=== PATIENT | male | born 1955 | race Caucasian/White ===

== ENCOUNTER 2017-01-02 10:03 | Observation (INO) | payer OTHER ==
[2017-01-02] MEDS ORDERED: NS 0.9% 1000 ML* 1,000 ML IV SCH (10:15)
[2017-01-02 10:34] LABS: Hematocrit 40 % (42-52); Hemoglobin 13.4 g/dl (14.0-18.0); Mean Corpuscular HGB Conc 33 g/dl (31-36); Mean Corpuscular Hemoglobin 29 pg (27-31); Mean Corpuscular Volume 89 fL (80-94); Mean Platelet Volume 8 um3 (7.4-10.4); Red Blood Count 4.54 10^6/ul (4.0-5.4); Red Cell Distribution Width 13 % (10.5-15); White Blood Count 9.4 10^3/ul (3.5-10.8)
[2017-01-02] MEDS ORDERED: Aspirin Low Dose CHEW TAB* 81 MG PO ONE (10:43)
--- NOTE | 2017-01-02 10:47 | RAD ---
INDICATION: Palpitations COMPARISON: March 10, 2015 TECHNIQUE: An AP portable view obtained at 1014 hours is submitted. FINDINGS: Bones/Soft Tissues: There are no acute bony findings. There is sternotomy Cardiomediastinal: The cardiomediastinal silhouette is normal. Lungs: There are no infiltrates. Pleura: There are no pleural effusions. Other: None IMPRESSION: NO ACTIVE DISEASE.
[2017-01-02 10:55] LABS: Albumin 4.3 g/dL (3.2-5.2); BUN/Creatinine Ratio 18.2 (8-20); C Reactive Protein 3.97 mg/L (< 5.00); EGFR African American 113.2 (>60); Globulin 2.9 g/dL (2-4); Magnesium 1.8 mg/dL (1.9-2.7); Potassium 3.9 mmol/L (3.5-5.0); Total Bilirubin 0.6 mg/dL (0.2-1.0); Total Protein 7.2 g/dL (6.4-8.9)
[2017-01-02 11:06] LABS: Troponin I 0.04 ng/mL (<0.04)
[2017-01-02 11:16] LABS: TSH (Thyroid Stimulating Horm) 1.05 mcIU/mL (0.34-5.60)
--- NOTE | 2017-01-02 11:53 | ED ---
maurice Gloria Timothy, scribed for Leland Curiel MD on 01/02/17 at 1028 . Palpitations / Dysrhythmia - HPI Summary HPI Summary: Igor Benito is a 61 yo male presenting to [facility] with SOB, palpitations, disorientation, near syncope, and diaphoresis since 0800 today, lasting until 1000. He had been at work for 3 hours prior to his Sx. He states that resting has helped to alleviate his Sx. He takes ASA daily, and took some this morning. He denies any CP. His MHx includes heart murmur, migraine, back problems. - History of Current Complaint Time Seen by Provider: 01/02/17 10:36 Hx Obtained From: Patient Onset/Duration: Sudden Onset, Lasting Hours, Still Present Timing: Constant Severity Initially: Moderate Severity Currently: Moderate Character: Fast Alleviating: Rest Associated Signs & Symptoms: Syncope - near, Shortness of Breath, Diaphoresis, Nausea - Allergy/Home Medications Allergies/Adverse Reactions: Allergies Allergy/AdvReac Type Severity Reaction Status Date / Time No Known Allergies Allergy Verified 05/27/14 07:50 PMH/Surg Hx/FS Hx/Imm Hx Endocrine/Hematology History: Denies: Hx Diabetes, Hx Thyroid Disease Cardiovascular History: Reports: Other Cardiovascular Problems/Disorders - PT.STATES HEART MURMUR & IRREGULAR HEART BEAT Denies: Hx Congestive Heart Failure, Hx Hypertension, Hx Pacemaker/ICD Respiratory History: Denies: Hx Asthma, Hx Chronic Obstructive Pulmonary Disease (COPD), Other Respiratory Problems/Disorders GI History: Denies: Hx Ulcer, Other GI Disorders History: Denies: Hx Renal Disease Musculoskeletal History: Reports: Hx Back Problems, Other Musculoskeletal History - (right) carpal tunnel s/p surgery Sensory History: Reports: Hx Contacts or Glasses Denies: Hx Hearing Aid Opthamlomology History: Reports: Hx Contacts or Glasses Neurological History: Reports: Hx Headaches, Hx Migraine Denies: Other Neuro Impairments/Disorders Psychiatric History: Denies: Hx Panic Disorder - Surgical History Surgery Procedure, Year, [place] [facility] [place] Hx Anesthesia Reactions: No Infectious Disease History: Denies: Hx Clostridium Difficile, Hx Hepatitis, Hx Human Immunodeficiency Virus (HIV), Hx of Known/Suspected MRSA, Hx Shingles, Hx Tuberculosis, Traveled Outside the [place] in Last 30 Days - Family History Known Family History: Negative: Cardiac Disease, Hypertension, Diabetes - Social History Alcohol Use: None Substance Use Type: Reports: None Smoking Status (MU): Light Every Day Tobacco Smoker Type: Cigarettes Amount Used/How Often: 1/2 ppd Have You Smoked in the Last Year: Yes Review of Systems Positive: Skin Diaphoresis Eyes: Negative ENT: Negative Positive: Palpitations Positive: Shortness Of Breath Positive: Nausea Genitourinary: Negative Musculoskeletal: Negative Skin: Negative Positive: Syncope - near Psychological: Normal All Other Systems Reviewed And Are Negative: Yes Physical Exam Triage Information Reviewed: Yes Vital Signs On Initial Exam: Initial Vitals Temp Pulse Resp BP Pulse Ox 98.4 F 88 17 173/83 98 01/02/17 10:03 01/02/17 10:03 01/02/17 10:03 01/02/17 10:03 01/02/17 10:03 Vital Signs Reviewed: Yes Appearance: Positive: No Pain Distress, Well-Nourished, Ill-Appearing - mild Skin: Positive: Warm, Skin Color Reflects Adequate Perfusion, Dry Head/Face: Positive: Normal Head/Face Inspection Eyes: Positive: EOMI, DEVIN ENT: Positive: Normal ENT inspection, Hearing grossly normal. Negative: Muffled /hoarse voice Neck: Positive: Supple, Nontender Respiratory/Lung Sounds: Positive: Clear to Auscultation, Breath Sounds Present Cardiovascular: Positive: RRR - occasional PVC's Musculoskeletal: Positive: Strength/ROM Intact Neurological: Positive: Sensory/Motor Intact, Alert, Oriented to Person Place, Time Psychiatric: Positive: Affect/Mood Appropriate Diagnostics - Vital Signs Vital Signs Temp Pulse Resp BP Pulse Ox 01/02/17 10:03 98.4 F 88 17 173/83 98 - Laboratory Lab Results: Lab Results 01/02/17 01/02/17 01/02/17 Range/Units 10:20 10:20 10:20 WBC 9.4 (3.5-10.8) 10^3/ul RBC 4.54 (4.0-5.4) 10^6/ul Hgb 13.4 L (14.0-18.0) g/dl Hct 40 L (42-52) % MCV 89 (80-94) fL MCH 29 (27-31) pg MCHC 33 (31-36) g/dl RDW 13 (10.5-15) % Plt Count 189 (150-450) 10^3/ul MPV 8 (7.4-10.4) um3 Neut % (Auto) 77.3 (38-83) % Lymph % (Auto) 15.1 L (25-47) % Cannon % (Auto) 6.1 (1-9) % Eos % (Auto) 0.9 (0-6) % Baso % (Auto) 0.6 (0-2) % Absolute Neuts (auto) 7.2 (1.5-7.7) 10^3/ul Absolute Lymphs (auto) 1.4 (1.0-4.8) 10^3/ul Absolute Monos (auto) 0.6 (0-0.8) 10^3/ul Absolute Eos (auto) 0.1 (0-0.6) 10^3/ul Absolute Basos (auto) 0.1 (0-0.2) 10^3/ul Absolute Nucleated RBC 0.03 10^3/ul Nucleated RBC % 0.3 INR (Anticoag Therapy) 0.95 (0.89-1.11) APTT 29.0 (26.0-36.3) seconds D-Dimer, Quantitative < 200 (Less Than 230) ng/mL Sodium 135 (133-145) mmol/L Potassium 3.9 (3.5-5.0) mmol/L Chloride 102 (101-111) mmol/L Carbon Dioxide 24 (22-32) mmol/L Anion Gap 9 (2-11) mmol/L BUN 16 (6-24) mg/dL Creatinine 0.88 (0.67-1.17) mg/dL Est GFR ( Amer) 113.2 (>60) Est GFR (Non-Af Amer) 88.0 (>60) BUN/Creatinine Ratio 18.2 (8-20) Glucose 163 H (70-100) mg/dL Lactic Acid (0.5-2.0) mmol/L Calcium 9.0 (8.6-10.3) mg/dL Magnesium 1.8 L (1.9-2.7) mg/dL Total Bilirubin 0.60 (0.2-1.0) mg/dL AST 22 (13-39) U/L ALT 37 (7-52) U/L Alkaline Phosphatase 72 (34-104) U/L Total Creatine Kinase 126 (10-223) U/L CK-MB (CK-2) 3.0 (0.6-6.3) ng/mL Troponin I 0.04 H* (<0.04) ng/mL C-Reactive Protein 3.97 (< 5.00) mg/L B-Natriuretic Peptide ( - 100) pg/mL Total Protein 7.2 (6.4-8.9) g/dL Albumin 4.3 (3.2-5.2) g/dL Globulin 2.9 (2-4) g/dL Albumin/Globulin Ratio 1.5 (1-3) Lipase 29 (11.0-82.0) U/L TSH 1.05 (0.34-5.60) mcIU/mL 01/02/17 01/02/17 Range/Units 10:20 10:20 WBC (3.5-10.8) 10^3/ul RBC (4.0-5.4) 10^6/ul Hgb (14.0-18.0) g/dl Hct (42-52) % MCV (80-94) fL MCH (27-31) pg MCHC (31-36) g/dl RDW (10.5-15) % Plt Count (150-450) 10^3/ul MPV (7.4-10.4) um3 Neut % (Auto) (38-83) % Lymph % (Auto) (25-47) % Cannon % (Auto) (1-9) % Eos % (Auto) (0-6) % Baso % (Auto) (0-2) % Absolute Neuts (auto) (1.5-7.7) 10^3/ul Absolute Lymphs (auto) (1.0-4.8) 10^3/ul Absolute Monos (auto) (0-0.8) 10^3/ul Absolute Eos (auto) (0-0.6) 10^3/ul Absolute Basos (auto) (0-0.2) 10^3/ul Absolute Nucleated RBC 10^3/ul Nucleated RBC % INR (Anticoag Therapy) (0.89-1.11) APTT (26.0-36.3) seconds D-Dimer, Quantitative (Less Than 230) ng/mL Sodium (133-145) mmol/L Potassium (3.5-5.0) mmol/L Chloride (101-111) mmol/L Carbon Dioxide (22-32) mmol/L Anion Gap (2-11) mmol/L BUN (6-24) mg/dL Creatinine (0.67-1.17) mg/dL Est GFR ( Amer) (>60) Est GFR (Non-Af Amer) (>60) BUN/Creatinine Ratio (8-20) Glucose (70-100) mg/dL Lactic Acid 2.4 H* (0.5-2.0) mmol/L Calcium (8.6-10.3) mg/dL Magnesium (1.9-2.7) mg/dL Total Bilirubin (0.2-1.0) mg/dL AST (13-39) U/L ALT (7-52) U/L Alkaline Phosphatase (34-104) U/L Total Creatine Kinase (10-223) U/L CK-MB (CK-2) (0.6-6.3) ng/mL Troponin I (<0.04) ng/mL C-Reactive Protein (< 5.00) mg/L B-Natriuretic Peptide 58 ( - 100) pg/mL Total Protein (6.4-8.9) g/dL Albumin (3.2-5.2) g/dL Globulin (2-4) g/dL Albumin/Globulin Ratio (1-3) Lipase (11.0-82.0) U/L TSH (0.34-5.60) mcIU/mL Result Diagrams: 01/02/17 10:20 01/02/17 10:20 Lab Statement: Any lab studies that have been ordered have been reviewed, and results considered in the medical decision making process. - Radiology CXR Xray Interpretation: No Acute Changes - IMPRESSION: NO ACTIVE DISEASE. Radiology Interpretation Completed By: Radiologist - EKG 1008 Cardiac Rate: NL - [address] Segment: Normal EKG Interpretation: NSR @ 87 BPM, positive PVC's, normal ST. Re-Evaluation - Re-Evaluation Second Eval Re-Evaluation Time: 11:37 Change: Unchanged Comment: Pt is informed of lab and imaging studies, and is agreeable to current course of Tx. Course/Dx - Course Course Of Treatment: NO CRITICAL CARE TIME Assessment/Plan: Igor Benito is a 61 yo male presenting to [facility] with SOB, near syncope, palpitations, disorientation, diaphoresis from 0800 to 1000 today. In the ED he received ASA and IV fluids. His EKG suggests PVC's. His CXR suggests no acute disease. Note lactic acid of 2.4 and troponin of 0.04. After clinical examination and review of his imaging and lab studies, as well as discussion with Dr. Meredith, he [place] be [place] [facility] [place] and treatment. - Diagnoses Provider Diagnoses: Near syncope, Palpitations, Elevated troponin - Physician Notifications Discussed Care Of Patient With: 1129 - Dr. Meredith (hospitalist) - discussed Pt condition, notably Hx and troponin and lactic acid levels. Discussed most recent EKG. She accepts Pt for admission. Instructed by Provider To: Admit As Inpatient Discharge - Discharge Plan Condition: Stable Disposition: ADMITTED TO [facility] Referrals: No Primary Care Phys,NOPCP [Primary Care Provider] - The documentation as recorded by the maurice pena Timothy accurately reflects the service I personally performed and the decisions made by me, Leland Curiel MD.
[2017-01-02] MEDS ORDERED: Acetaminophen TAB* 325 MG PO PRN (12:28)
[2017-01-02] MEDS ORDERED: Temazepam CAP* 15 MG PO PRN (12:28)
[2017-01-02] MEDS: Heparin VIAL(*) 5000 UNITS/ML VIAL (FIVE THOUSAND) SUBCUT SCH ×2 (15:57→21:30)
--- NOTE | 2017-01-02 17:31 | HP ---
HISTORY AND PHYSICAL: DATE OF ADMISSION: 01/02/17 PRIMARY CARE PROVIDER: Aaron Lazar MD CHIEF COMPLAINT: Shortness of breath, nausea, and near syncope. HISTORY OF PRESENT ILLNESS: Igor Benito is a 61-year-old male with history of status post aortic valve replacement with a bovine valve in February 2015, who presented to the hospital today complaining of symptoms of basically near syncope. 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 Today, when he was standing up, he started feeling lightheaded, flushed, and short of breath. He also stated that his knees were "weak." He felt like he needed to sit down. He stated that he walked over to the bathroom and he nearly passed out. He denies chest pain per se. He did not have palpitations. He did feel shortness of breath and he did have an episode of nausea, but no vomiting. When he presented to the emergency department, his symptoms basically resolved. The patient himself stated that he feels like maybe he had an anxiety attack, and he stated that he had similar symptoms in the past, but of lesser intensity. The patient is going to be placed on observation with a diagnosis of near syncope. He most likely will undergo a cardiac stress test in the morning. PAST MEDICAL HISTORY: 1. Status post aortic valve replacement with bovine valve in February 2015. Prior to that, the patient cardiac catheterization in 2014, which was grossly unremarkable and negative for coronary artery disease. 2. History of obesity, current BMI is 39. 3. History of smoking, the patient quit smoking 2 years ago. 4. History of dyslipidemia. 5. History of obstructive sleep apnea. Currently under investigation, not treated. The patient's most recent echocardiogram after aortic valve replacement in April 2015 showed EF of 45%. HOME MEDICATIONS: Include: 1. Atorvastatin 20 mg daily. 2. Metoprolol tartrate 25 mg b.i.d. 3. Aspirin 81 mg daily. 4. Multivitamin 1 tablet daily. ALLERGIES: No known drug allergies. FAMILY HISTORY: The patient's mother of "old age" in her 70s. The patient 's father's history is unknown. His siblings are healthy. SOCIAL HISTORY: The patient has a history of smoking 1 pack per day and he quit 2 years ago. He has got a history of over 40 pack years. He drinks alcohol rarely. He denies any drug use. He is single and lives with his girlfriend, Jessica. Jessica would be his surrogate as indicated by the patient. REVIEW OF SYSTEMS: Please see history of present illness. In addition to the above mentioned, the patient stated that his exercise tolerance has been fair. He has had problems with osteoarthritis in bilateral knees, but he stated that he has no problems walking on a treadmill. He denies any chest pain. He stated that he had been anxious with problems with his neighbors and not really sleeping well due to that. He ate his breakfast before the occurrence of the episode described as above. All the remaining 14 systems were reviewed with the patient and were otherwise negative. PHYSICAL EXAMINATION GENERAL: The patient is a 61-year-old obese male who is in no acute distress. Alert, awake, and oriented x2. VITAL SIGNS: Blood pressure of 149/80, heart rate of 81 and regular, respiratory rate 18, oxygen saturation 98% on 2 L of oxygen nasal cannula, temperature 97.8. HEENT: Head atraumatic, normocephalic. Eyes: Pupils are equal, reactive to light and accommodation. Oropharynx: Clear. Mucosa moist. NECK: Supple. No JVD, no bruit bilaterally. RESPIRATORY: Clear to auscultation bilaterally. CARDIOVASCULAR: Regular rate and rhythm with a 2/6 systolic ejection murmur noted on auscultation of left upper sternal border. ABDOMEN: Soft, nontender, bowel sounds present in all 4 quadrants, protuberant. EXTREMITIES: There is trace lateral ankle edema. +2 pulses bilaterally. No clubbing or cyanosis. NEUROLOGIC: Speech clear. Cranial nerves II through XII grossly intact. Motor strength is 5/5 bilaterally. SKIN: On evaluation of the skin, no ecchymotic areas or rashes noted. PSYCHIATRIC EVALUATION: Oriented x3 with no evidence of anxiety or depression. DIAGNOSTIC STUDIES/LABORATORY DATA: Shows white blood cell count of 9.4, hemoglobin of 13.4, hematocrit of 40, and platelets of 189. Sodium was 135, potassium 3.9, chloride 102, carbon dioxide 24, BUN 16, creatinine 0.88. Liver function tests were unremarkable. Glucose level was 163. Troponin was 0.04. C-reactive protein was 3.9. TSH was 1.05. Brain natriuretic peptide was 58. Lactic acid of 2.4. The patient's portable chest x-ray, impression. "No active disease." The patient's EKG showed normal sinus rhythm with a heart rate of 87 beats per minute with frequent PVCs. No acute ST changes were noted. ASSESSMENT AND PLAN: A 61-year-old male with history of possible obstructive sleep apnea, obesity, status post aortic valve replacement, who presents with symptoms of near syncope, shortness of breath, feeling nauseated. 1. At this point, the patient most likely had near syncope experience. At this point, his lactic acid is mildly elevated. He is going to receive gentle intravenous hydration. He is going to be observed from telemetry monitored bed. We will follow up his troponins. If troponins continue to be negative, he is going to undergo a cardiac stress test. He has not had a cardiac stress test since his cardiac catheterization in 2014. An aspirin is going to be continued. 2. In regards to hypertension, beta-ronnie is going to be continued. 3. For dyslipidemia, his atorvastatin is going to be continued. 4. For DVT prophylaxis, the patient is going to be placed on heparin subcutaneously for DVT prophylaxis. 5. The patient's code status is full and his surrogate is his girlfriend, Jessica. TIME SPENT: Approximately 55 minutes was spent on admission of this patient, more than half that time was spent in [id number] with the patient during the interview and physical exam. CC: John Muhammad MD; Aaron Lazar MD* [id number]/[facility] #: [id number] MTDD
[2017-01-02] MEDS ORDERED: Atorvastatin* 20 MG TAB PO SCH (21:00)
[2017-01-02] MEDS: Metoprolol Tartrate TAB* 25 MG PO SCH (21:30)
[2017-01-03] MEDS: Heparin VIAL(*) 5000 UNITS/ML VIAL (FIVE THOUSAND) SUBCUT SCH ×2 (06:06→13:36)
[2017-01-03] MEDS ORDERED: Aspirin TAB* 325 MG PO SCH (09:00)
--- NOTE | 2017-01-03 12:37 | RAD ---
HISTORY: Near syncope, obesity, elevated cholesterol COMPARISONS: None TECHNIQUE: A 1 day stress/rest myocardial perfusion study was performed, with exercise stress. The exercise portion was performed using the Aaron protocol, for a total METs of 7. The stress portion was monitored by Dr. Gomez. Gated SPECT imaging was performed, with CT-based attenuation correction DOSE: Stress: Technetium 99m tetrofosmin, 25.69 millicuries, injected at 11:33 AM on January 03, 2017 Rest: Technetium 99m tetrofosmin, 10.4 millicuries, injected at 8:29 AM on January 03, 2017 Pharmacologic agent: None FINDINGS: CARDIAC MONITORING: No EKG changes of ischemia with stress EF: 51 % TID: 1.03 MOTION: There is septal hypokinesia PERFUSION: There are questionable, small perfusion defects towards the apex and anterior wall. There are no significant fixed or reversible perfusion defects. OTHER: None IMPRESSION: NO SIGNIFICANT FIXED OR REVERSIBLE PERFUSION DEFECTS ASSESSMENT: LOW RISK. Based on imaging criteria from ACC/AHA 2002. Guideline Update for the Management of Patient's with Chronic Stable Angina, table 23. Noninvasive Risk Stratification.
[2017-01-03 12:44] VITALS: BP 145/98
[2017-01-03] MEDS: Metoprolol Tartrate TAB* 25 MG PO SCH (12:47)
--- NOTE | 2017-01-04 01:07 | DS ---
DISCHARGE SUMMARY: DATE OF ADMISSION: 01/02/17 DATE OF DISCHARGE: 01/03/17 PRIMARY CARE PROVIDER: Dr. Aaron Lazar. DISCHARGE DIAGNOSES: Shortness of breath, nausea, and near syncope, most likely due to mild dehydration and stress related. The patient had low probability cardiac stress test obtained on 01/03/17. SECONDARY DIAGNOSES: 1. Status post aortic valve replacement with bovine valve in February of 2015. 2. History of obesity. 3. History of dyslipidemia. 4. Obstructive sleep apnea, currently under investigation. MEDICATIONS AT DISCHARGE: Unchanged from admission include: 1. Atorvastatin 20 mg daily. 2. Metoprolol tartrate 25 mg b.i.d. 3. Aspirin 81 mg daily. 4. Multivitamin 1 tablet daily. LABORATORY DATA AND STUDIES PERFORMED DURING THE HOSPITAL STAY: Included troponins continued to be 0.03 throughout the patient's hospital stay and the initial troponin was 0.04. Cardiac stress test obtained on 01/03/17, impression: "No significant fixed or reversible perfusion defects." Please also note that in perfusion part of the test it was noted that "there are questionable small perfusion defects towards the apex and anterior wall. There are no significant fixed or reversible perfusion defects." HOSPITALIZATION COURSE: Igor Benito is a 61-year-old male, who was standing while working and he felt dizzy and flushed and short of breath. He felt as if he was going to pass out and he came into the ER for evaluation. His initial troponin was 0.04, but the remaining troponins continued to be in the slightly lower range at 0.03. He never complained of chest pain. Nevertheless, the patient was placed on telemetry monitored bed to evaluate for arrhythmia. The patient did have occasional PVCs throughout his hospital stay. He underwent a cardiac stress test and there was treadmill Myoview on 01/03/17, which showed possible very small defects but overall there were no significant abnormalities noted and the stress test was evaluated and assessed as low probability. The patient had no further symptoms throughout his hospital stay and he ambulated without any further episodes of dizziness or syncope. The patient is going to be discharged home. Recommendation to follow up with Dr. Lazar in approximately 4 to 7 days. PHYSICAL EXAM AT DISCHARGE: Unchanged from admission. CC: Dr. Lazar * [id number]/[facility] #: [id number] [facility]
== END 2017-01-03 14:28 | disposition home or self-care (01) ==
LOC: ED 10:03 → MEDTELE 11:31
PROVIDERS: ADMIT Internal Medicine; ATTEND Internal Medicine
DX: R55 Syncope and collapse (principal); R06.02 Shortness of breath; E86.0 Dehydration; I49.3 Ventricular premature depolarization; I10 Essential (primary) hypertension; R11.0 Nausea; E78.5 Hyperlipidemia, unspecified; Z95.2 Presence of prosthetic heart valve; Z87.891 Personal history of nicotine dependence; G47.33 Obstructive sleep apnea (adult) (pediatric)
CPT/HCPCS: 36415; 71010; 78452; 80053; 82550; 82553; 83605; 83690; 83735; 83880; 84443; 84484; 85025; 85379; 85610; 85730; 86140; 93005; 93017; 96360; 96361; 96372; 99283; A9270-GY; A9502; G0378; J1644

== ENCOUNTER 2023-09-10 23:50 | Inpatient (IN) ==
[2023-09-11 00:22] LABS: ABS Basophils 0.1 10^3/uL (0.0-0.1); ABS Eosinophils 0.2 10^3/uL (0.0-0.5); ABS Lymphocytes 2.1 10^3/uL (1.0-4.8); ABS Monocytes 1.2 10^3/uL (0.0-1.1); ABS Neutrophils 15.8 10^3/uL (1.5-7.6); ABS Nucleated RBC 0.01 10^3/ul; Activated Partial Thrombo Time 38.6 seconds (26.0-38.0); Eosinophil % 1.2 %; Hematocrit 42.4 % (38-53); Hemoglobin 14.4 g/dL (13.2-16.3); INR 1.44 (0.83-1.13); Lymphocyte % 10.8 %; Mean Corpuscular Hemoglobin 30.1 pg (27-33); Mean Corpuscular Volume 88.5 fL (80-97); Mean Platelet Volume 7.6 fL (7.5-11.2); Platelet Count 222 10^3/uL (150-450); Red Blood Count 4.78 10^6/uL (4.06-5.63); Red Cell Distribution Width 13.3 % (12-17); White Blood Count 19.4 10^3/uL (3.6-10.2)
[2023-09-11 00:36] LABS: Resp Rate 12
[2023-09-11 00:36] LABS: Albumin 4.4 g/dL (3.2-5.2); Albumin/Globulin Ratio 1.4 (1-3); C Reactive Protein 6.37 mg/L (<8.01); Calcium 9.2 mg/dL (8.6-10.3); Creatinine, Serum 1.43 mg/dL (0.67-1.17); Globulin 3.2 g/dL (2-4); Potassium 4.7 mmol/L (3.5-5.0); Total Bilirubin 0.6 mg/dL (0.2-1.0); Total Protein 7.6 g/dL (6.4-8.9); eGFR CKD-EPI 53.4 (>60)
[2023-09-11 00:39] LABS: PCO2 Arterial 41 mmHg (35-45); PO2 Arterial 167 mmHg (80-100)
[2023-09-11 01:41] LABS: High Sensitivity Troponin 1 Hr 26 pg/mL (<20)
[2023-09-11] MEDS ORDERED: Furosemide 40 mg/4 ml IV VIAL IV ONE (01:57)
[2023-09-11] MEDS ORDERED: Al Hydrox/Mg Hydrox/Simet LIQ 30 ML UDC PO PRN (03:14)
[2023-09-11] MEDS ORDERED: Polyethylene Glycol 3350 17 GM PACKET PO PRN (03:14)
[2023-09-11] MEDS ORDERED: Dextrose 50% Syringe 50 ml 25 GM/50 ML SYRINGE IV PUSH PRN (03:20)
[2023-09-11 06:36] LABS: Calcium 9.5 mg/dL (8.6-10.3); Creatinine, Serum 1.37 mg/dL (0.67-1.17); Potassium 4.4 mmol/L (3.5-5.0); eGFR CKD-EPI 56.2 (>60)
[2023-09-11] MEDS ORDERED: Sulfur Hexaflouride MICROSPHR 25 MG VIAL ONE (08:10)
[2023-09-11] MEDS: Aspirin EC 81 mg TAB.EC (enteric coated) PO SCH (08:41)
[2023-09-11] MEDS: Amiodarone 400 mg TAB PO SCH (20:30)
[2023-09-12 06:46] LABS: ABS Basophils 0.2 10^3/uL (0.0-0.1); ABS Eosinophils 0.2 10^3/uL (0.0-0.5); ABS Lymphocytes 1.5 10^3/uL (1.0-4.8); ABS Monocytes 0.9 10^3/uL (0.0-1.1); ABS Neutrophils 6.8 10^3/uL (1.5-7.6); Eosinophil % 1.7 %; Hematocrit 40.8 % (38-53); Hemoglobin 14.1 g/dL (13.2-16.3); Mean Corpuscular Hemoglobin 30.2 pg (27-33); Mean Corpuscular Hgb Conc 34.5 g/dL (31-36); Mean Corpuscular Volume 87.5 fL (80-97); Mean Platelet Volume 7.7 fL (7.5-11.2); Platelet Count 195 10^3/uL (150-450); Red Blood Count 4.66 10^6/uL (4.06-5.63); Red Cell Distribution Width 13.2 % (12-17); White Blood Count 9.5 10^3/uL (3.6-10.2)
[2023-09-12 07:22] LABS: Calcium 9.5 mg/dL (8.6-10.3); Creatinine, Serum 1.18 mg/dL (0.67-1.17); Potassium 4.2 mmol/L (3.5-5.0); eGFR CKD-EPI 67.2 (>60)
[2023-09-12] MEDS: Aspirin EC 81 mg TAB.EC (enteric coated) PO SCH (08:51)
[2023-09-12] MEDS: Amiodarone 400 mg TAB PO SCH (08:52)
[2023-09-12 10:12] VITALS: BP 108/69
== END 2023-09-12 14:33 | disposition home or self-care (01) | DRG 291 ==
LOC: ED 23:50 → SUATTDRO 09-11 03:14 → EDHOLD 09-11 03:14 → ICU 09-11 05:15 → MEDTELE 09-11 21:34
PROVIDERS: ADMIT Internal Medicine; ATTEND Student in an Organized Health Care Education/Training Program